=== PATIENT | male | born 2000 | race Asian ===

== ENCOUNTER 2022-08-09 22:36 | Emergency (ER) | payer OTHER, SELFPAY ==
[2022-08-09 22:43] VITALS: BP 126/79; PULSE 99; RESP 18; TEMP 37.9; O2SAT 98
--- NOTE | 2022-08-09 22:54 | ED_ITS ---
HPI - Fever General Chief Complaint: Fever Stated Complaint: high fever Time Seen by Provider: 08/09/22 22:37 History of Present Illness HPI Narrative: Patient is a 22-year-old gentleman who comes in today with intermittent fever and chills for last 3 weeks. Had temperature of a 103? tonight. He tested negative for COVID at home. He has had no recent travel no sick exposures. He has had a dry nonproductive cough. He has had no stiff neck headache or rash. He states his symptoms are minimal and he has no pain. Related Data Home Medications Medication Instructions Recorded Confirmed clindamycin 1.2 % (1 % topical QPM 08/09/22 base)-benzoyl peroxide 5 % topical gel Allergies Allergy/AdvReac Type Severity Reaction Status Date / Time No Known Drug Allergies Allergy Verified 08/09/22 22:46 Review of Systems Status of ROS Reports: 10 or more systems reviewed and unremarkable except as noted in History and below Exam Narrative Exam Narrative: EXAM GENERAL: Patient appears comfortable and well. EYES: No scleral icterus. ENT: Tympanic membranes and oropharynx normal. THYROID: no thyroid nodules or thyromegaly. LYMPH: No supraclavicular or cervical lymphadenopathy. SKIN: Visible skin seen during exam normal or with benign process only. EXT: No dependent lower extremity pedal edema. HEART: Regular rate and rhythm with no murmurs, rubs, or gallops. LUNGS: Clear to auscultation bilaterally with no crackles or wheezes. ABD: Soft, non tender, non distended. PSYCH: Good eye contact, speech is not pressured. Const Vital Signs, click to edit/add: Vital Signs - 24 hr 08/09/22 22:43 Temperature 100.3 F H Pulse Rate [Left Pulse Oximeter] 99 Respiratory Rate 18 Blood Pressure [Right Upper Arm] 126/79 Pulse Oximetry 98 Oxygen Delivery Method Room Air Course Course Hospital Course: CBC basic metabolic panel rapid strep influenza COVID RSV testing as well as Monospot collected. Vital Signs Vital signs: Initial Vital Signs Temperature 100.3 F H 08/09/22 22:43 Temperature Source Temporal Artery Scan 08/09/22 22:43 Pulse Rate 99 08/09/22 22:43 Pulse Rhythm Regular 08/09/22 22:43 Respiratory Rate 18 08/09/22 22:43 Blood Pressure 126/79 08/09/22 22:43 Blood Pressure Mean 94 08/09/22 22:43 Blood Pressure Position Semi-Fowlers 08/09/22 22:43 Pulse Oximetry 98 08/09/22 22:43 Oxygen Delivery Method Room Air 08/09/22 22:43 Vital Signs Temperature 100.3 F H 08/09/22 22:43 Pulse Rate 99 08/09/22 22:43 Respiratory Rate 18 08/09/22 22:43 Blood Pressure 126/79 08/09/22 22:43 Pulse Oximetry 98 08/09/22 22:43 Oxygen Delivery Method Room Air 08/09/22 22:43 Temperature 100.3 F H 08/09/22 22:43 Pulse Rate 99 08/09/22 22:43 Respiratory Rate 18 08/09/22 22:43 Blood Pressure 126/79 08/09/22 22:43 Pulse Oximetry 98 08/09/22 22:43 Oxygen Delivery Method Room Air 08/09/22 22:43 MDM - Fever MDM Narrative Medical decision making narrative: Patient presents with a fevers off and on for the last several weeks. CBC is unremarkable chest x-ray is unremarkable upon my review. I did collect basic metabolic panel COVID testing influenza and RSV testing which we will follow-up up on. This point reassurance is offered plenty of rest plenty of fluids follow-up as needed. Differential Diagnosis Differential diagnosis: Likely fever of unknown origin, gastroenteritis, community acquired pneumonia, pyelonephritis, viral infection, sepsis and influenza Lab Data Labs: Lab Results 08/09/22 Range/Units 23:08 WBC 8.58 (4.50-11.00) K/uL RBC 5.02 (4.30-5.90) m/uL Hgb 15.1 (13.5-17.5) gm/dL Hct 43.5 (37.0-53.0) % MCV 87 (80-100) fL MCH 30 (26-34) pg MCHC 35 (32-36) gm/dL RDW Coeff of Octavio 11.1 L (11.5-15.5) % Plt Count 170 (140-440) K/uL Neut % (Auto) 75.7 H (42.0-72.0) % Lymph % (Auto) 12.8 L (20-44) % [place] % (Auto) 11.1 H (0.0-11.0) % Eos % (Auto) 0.1 (0.0-7.0) % Baso % (Auto) 0.2 (0.0-3.0) % Neut # (Auto) 6.50 (1.7-7.0) K/uL Lymph # (Auto) 1.10 (0.90-2.90) K/uL [place] # (Auto) 1.00 H (0.00-0.90) K/UL Eos # (Auto) 0.01 (0.00-0.50) K/uL Baso # (Auto) 0.02 (0.00-0.30) K/uL Discharge Plan Discharge Clinical Impression: Fever of unknown origin Patient Disposition: Home, Self-Care Condition: Stable Instructions: Fever in Adults (ED) Additional Instructions: Rest Tylenol Motrin Fluids Follow-up with primary care not improved in the next week. Activity Level: No Restrictions Discharge Diet: Regular Prescriptions: No Action clindamycin-benzoyl peroxide 1.2 %(1 % base) -5 % gel topical QPM Stand Alone Forms: [facility] Info Instructions
--- NOTE | 2022-08-09 22:55 | CRLHL7_ITS ---
For Patients: As a result of the Century Cures Act, medical imaging exams and procedure reports are released immediately into your electronic medical record. You may view this report before your referring provider. If you have questions, please contact your health care provider. INDICATION: cough CHEST, PA AND LATERAL Upright PA and lateral radiographs of the chest were performed. Comparison: No previous studies are currently available for comparison. The lungs appear clear and there are no pleural effusions. Heart size and pulmonary vasculature appear normal. Visualized bones show no significant findings. IMPRESSION: No acute intrathoracic abnormality identified. ARSLAN OLIVARES MD [facility] Dictated by: Franky Olivares MD @ 08/10/2022 00:07:22 (Electronically Signed)
[2022-08-09 23:18] LABS: Basophils Absolute Auto 0.02 K/uL (0.00-0.30); Basophils Percent Auto 0.2 % (0.0-3.0); Eosinophils Absolute Auto 0.01 K/uL (0.00-0.50); Eosinophils Percent Auto 0.1 % (0.0-7.0); Hematocrit 43.5 % (37.0-53.0); Hemoglobin* 15.1 gm/dL (13.5-17.5); Immature Granulocytes Abs Auto 0.01 K/uL (0.00-0.30); Immature Granulocytes Pct Auto 0.1 %; Lymphocytes Percent Auto 12.8 % (20-44); Mean Corpuscular HGB Conc 35 gm/dL (32-36); Mean Corpuscular Hemoglobin 30 pg (26-34); Mean Corpuscular Volume 87 fL (80-100); Monocytes Percent Auto 11.1 % (0.0-11.0); Neutrophils Percent Auto 75.7 % (42.0-72.0); Platelet Count* 170 K/uL (140-440); RDW Coefficient of Variation % 11.1 % (11.5-15.5); Red Blood Count 5.02 m/uL (4.30-5.90); White Blood Count* 8.58 K/uL (4.50-11.00)
[2022-08-09 23:20] LABS: Slide Review Reflex No
[2022-08-09 23:30] LABS: Chloride* 96 mmol/L (96-114); Potassium* 3.8 mmol/L (3.6-5.1); Sodium* 133 mmol/L (135-149)
[2022-08-09 23:33] LABS: Blood Urea Nitrogen* 14 mg/dL (5-24); Carbon Dioxide* 30 mmol/L (20-32); Estimated Glomerular Filt Rate 111 ml/min
[2022-08-09 23:34] LABS: Calcium* 8.8 mg/dL (8.4-10.6); Glucose* 104 mg/dL (60-115)
[2022-08-09 23:56] LABS: PCR FLU A Negative PCR FLU A (Negative); PCR FLU B Negative PCR FLU B (Negative); PCR RSV Negative PCR RSV (Negative)
[2022-08-09 23:57] LABS: Mono Screen* Negative (Negative)
[2022-08-10 00:01] LABS: SARS PCR* Negative SARS-CoV-2 (Negative)
[2022-08-10 02:10] LABS: Strep A DNA Probe* NOT DETECTED (Not Detectd)
== END 2022-08-09 23:47 | disposition home or self-care (01) ==
PROVIDERS: Emergency Provider Internal Medicine
DX: R50.9 Fever, unspecified (principal)
CPT/HCPCS: 36415; 71046; 80048; 85025; 86308; 87631; 87651; 99283

== ENCOUNTER 2022-08-11 02:19 | Emergency (ER) | payer OTHER, SELFPAY ==
[2022-08-11 02:20] VITALS: RESP 16; TEMP 37.9; O2SAT 98
[2022-08-11 02:28] VITALS: BP 124/83; PULSE 89; RESP 16; TEMP 38; O2SAT 99
[2022-08-11 03:32] LABS: PCR FLU A Negative PCR FLU A (Negative); PCR FLU B Negative PCR FLU B (Negative); PCR RSV Negative PCR RSV (Negative)
[2022-08-11 03:43] LABS: SARS PCR* Negative SARS-CoV-2 (Negative)
[2022-08-11 04:00] VITALS: BP 128/63; PULSE 86; RESP 16; TEMP 37.7; O2SAT 98
--- NOTE | 2022-08-11 04:00 | ED.GENADULT ---
HPI - General Adult General Chief complaint: Fever Stated complaint: Rule out Meningitis Time Seen by Provider: 08/11/22 02:23 Source: patient Mode of arrival: ambulatory Limitations: no limitations History of Present Illness HPI narrative: 22-year-old male referred to emergency department by nurse line because of persistent fever. He had reported that he had pain when he turned his neck significantly to the side, they became concerned with what I presume was meningitis and advised him to be seen again in the emergency department. He was evaluated less than 36 hours ago. Blood work and exam are all reviewed. At that time he was not experiencing any neck tenderness. He still has no stiffness to the neck. There is no photophobia. He does have a mild headache but also body aches. He has a mild sore throat, swollen lymph nodes in his neck and still has a mild cough. This is similar to his symptoms from a day and a half ago. There is still no abdominal pain, no rash. Together he and I review his outpatient vaccine records and he is vaccinated against both viral and bacterial meningitis. He has no tenderness to extension or flexion of the neck. No vomiting. Fevers were as high as 103 prior to being seen in the ED, he said he thought he was 102 at home yesterday. Notes and labs are reviewed. He states that his past medical history is benign, no major long-term health problems. His only prescription medication is a topical acne product. No allergies. Denies alcohol, illicit drug use. No pertinent travel. ROS is notable for the generalized, HEENT, respiratory symptoms as above, otherwise denies times 12 systems. Related Data Home Medications Medication Instructions Recorded Confirmed clindamycin 1.2 % (1 % topical QPM 08/09/22 base)-benzoyl peroxide 5 % topical gel Allergies Allergy/AdvReac Type Severity Reaction Status Date / Time No Known Drug Allergies Allergy Verified 08/09/22 22:46 Exam Const: Vital Signs, click to edit/add: Vital Signs - 24 hr 08/11/22 02:28 Temperature 100.4 F H Pulse Rate [Left P ulse Oximeter] 89 Respiratory Rate 16 Blood Pressure [Ri ght Upper Arm] 124/83 Pulse Oximetry 99 Oxygen Delivery Me thod Room Air Documenting provider has reviewed patient's vital signs: yes Common normals: no apparent distress General appearance: cooperative, comfortable and well kempt HENMT: Common normals: normocephalic, head/scalp atraumatic and TM's normal bilaterally Head and scalp: normocephalic and atraumatic Face and sinus: normal facial exam Tympanic membrane: TM's normal bilaterally Other: Mildly erythematous posterior oropharynx, tonsils and uvula not enlarged, no blisters or aphthous ulcers. Eye: Other: Conjunctiva are slightly injected as are sclera with no exudate. Neck & C-Spine: Common normals: no meningeal signs Other: There is moderate anterior cervical and submandibular lymphadenopathy. He moves his neck freely both on conversation, tracking me around the room. He has absolutely no tenderness with flexion and extension. There is no tenderness to palpation of the paraspinal muscles. It seems as though when he turns his neck to the side and engages his sternocleidomastoid muscle that it is pressing against his lymphadenopathy causing his tenderness. Resp: Common normals: normal respiratory effort, no use of accessory muscles and clear to auscultation bilaterally Effort & inspection: able to speak in complete sentences Auscultation: clear to auscultation bilaterally Cardio: Common normals: regular rate, regular rhythm, S1 normal heart sound, S2 normal heart sound and no murmurs Rate: regular rate Rhythm: regular rhythm Heart sounds: S1 normal and S2 normal GI: Common normals: Normal to inspection, nondistended, normoactive bowel sounds present, soft to palpation, no hepatosplenomegaly and no masses Palpation: soft and no hepatosplenomegaly : Common normals: no CVA tenderness Bladder/kidney exam: no CVA tenderness Back & Pelvis: Common normals: no CVA tenderness and thoracic and lumbar spine normal to inspection Extremity: Common normals: normal to inspection, full ROM, normal capillary refill and no pedal edema Neuro: Meningeal signs: no meningeal signs; no nuccal rigidity, no Brudzinski's sign and no Kernig's sign Speech: speech normal Gait (neuro): normal gait Motor exam: strength 5/5 throughout, no tremor noted and no movement abnormalities noted Psych: Appearance: well kempt Attitude: engaged Mood and affect: euthymic mood Skin: Common normals: no rashes or lesions noted General skin exam: no rashes or lesions noted Course Vital Signs Vital signs: Initial Vital Signs Temperature 100.4 F H 08/11/22 02:28 Temperature Source Temporal Artery Scan 08/11/22 02:28 Pulse Rate 89 08/11/22 02:28 Pulse Rhythm Regular 08/11/22 02:28 Respiratory Rate 16 08/11/22 02:28 Blood Pressure 124/83 08/11/22 02:28 Blood Pressure Mean 96 08/11/22 02:28 Blood Pressure Position Sitting 08/11/22 02:28 Pulse Oximetry 99 08/11/22 02:28 Oxygen Delivery Method Room Air 08/11/22 02:28 Vital Signs Temperature 100.4 F H 08/11/22 02:28 Pulse Rate 89 08/11/22 02:28 Respiratory Rate 16 08/11/22 02:28 Blood Pressure 124/83 08/11/22 02:28 Pulse Oximetry 99 08/11/22 02:28 Oxygen Delivery Method Room Air 08/11/22 02:28 Temperature 100.4 F H 08/11/22 02:28 Pulse Rate 89 08/11/22 02:28 Respiratory Rate 16 08/11/22 02:28 Blood Pressure 124/83 08/11/22 02:28 Pulse Oximetry 99 08/11/22 02:28 Oxygen Delivery Method Room Air 08/11/22 02:28 Medical Decision Making MDM Narrative Medical decision making narrative: Neck tenderness in the setting of viral illness. Swabs are negative today. Discussed risks and benefits of doing lumbar puncture. He is not exhibiting enough signs that make me believe the benefit of doing the procedure outweighs the risk. Counseled patient that there is a risk of herniation, infection, CSF leak from doing the procedure. His symptoms do not appear consistent with meningitis most likely. I cannot exclude this without a lumbar puncture. Through steer decision making, we agree that doing a procedure seems risk year than watchful waiting. Stressed the importance of continue Tylenol and ibuprofen. It is not unusual that his fevers and illness have not yet resolved. We could consider doing send out mono testing or other viral testing but will not change the course of his illness. Alarm symptoms reviewed that would indicate reasons to come back to the ED and he verbalizes understanding and agreement. Lab Data Lab results reviewed: Yes I reviewed the patient's lab results Lab results narrative: Reassuring, also reviewed from yesterday Labs: Lab Results 08/11/22 Range/Units 02:47 Urine Color Yellow (Yellow) Urine Appearance Clear (Clear) Urine pH 7.0 (5.0-8.5) Ur Specific [place] 1.010 (1.000-1.030) Urine Protein Negative (Negative) Urine Glucose (UA) Negative (Negative) Urine Ketones Negative (Negative) Urine Blood Negative (Negative) Urine Nitrite Negative (Negative) Urine Bilirubin Negative (Negative) Urine Urobilinogen 0.2 (0.2-1.0) Ur Leukocyte Esterase Negative (Negative) SARS-CoV-2 (PCR) Negative SARS-CoV-2 (Negative) Influenza Type A (PCR) Negative PCR FLU A (Negative) Influenza Type B (PCR) Negative PCR FLU B (Negative) RSV (PCR) Negative PCR RSV (Negative) Discharge Plan Discharge Clinical Impression: Acute viral syndrome Patient Disposition: Home, Self-Care Condition: Stable Instructions: Viral Syndrome (ED) Additional Instructions: As we discussed, your not exhibiting signs of meningitis. I am thankful for this. Together, we decided that doing a spinal tap also known as a lumbar puncture has more risk than potential benefit to you. Your findings are consistent with a viral process such as mono, influenza B or the Coxsackie virus all of which I am seeing plenty of through the ED these days. Your swabs for COVID, influenza and RSV are negative. But as we discussed, the sensitivity of these can be as low as 65%. Doing send out mono testing would be an option but would need to be coordinated through your primary care provider as it is difficult to track people down to discuss results through emergency department. It will not change our management. I would like for you to be more aggressive with Tylenol and ibuprofen. Ibuprofen is dose 600 mg every 6 hours, Tylenol 1000 mg every 6 hours. At this time, your neck tenderness does not seem consistent with meningitis related stiffness. If this worsens significantly, especially if accompanied by light sensitivity, nausea and severe fatigue, please come back to the emergency department. Your symptoms should gradually improve over the next 5-10 days. It is okay to use [id number] cough suppressants or throat lozenges as well. Activity Level: No Restrictions Discharge Diet: Regular Prescriptions: No Action clindamycin-benzoyl peroxide 1.2 %(1 % base) -5 % gel topical QPM Follow Up/Referrals: Provider,Not a Local [Primary Care Provider] - Stand Alone Forms: [facility] Info Instructions
[2022-08-11 04:03] LABS: Appearance Urine Clear (Clear); Bilirubin Urine Negative (Negative); Blood Urine Negative (Negative); Color Urine Yellow (Yellow); Glucose Urine Negative (Negative); Ketones Urine Negative (Negative); Leukocyte Esterase Urine Negative (Negative); Nitrite Urine Negative (Negative); Protein Urine Negative (Negative); Urobilinogen Urine 0.2 (0.2-1.0)
== END 2022-08-11 04:19 | disposition home or self-care (01) ==
LOC: ED 04:06
PROVIDERS: Emergency Provider Family Medicine
DX: B34.9 Viral infection, unspecified (principal)
CPT/HCPCS: 81003; 87631; 99282